=== PATIENT | female | born 1995 | race Caucasian/White ===

== ENCOUNTER 2019-08-20 19:06 | Emergency (ER) | payer BC ==
[~2019-08-20] VITALS: Ht 165.1 cm; Wt 79.5 kg
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
--- NOTE | 2019-08-20 19:57 | RAD ---
ANKLE LEFT 3V History: Reason: twisted ankle / Spl. Instructions: / History: Technique: 3 views left ankle. Comparison: None. Findings: Severe lateral ankle soft tissue swelling. Symmetric ankle mortise. No fracture. Small ankle joint effusion. Impression: 1. No acute osseous abnormality. 2. Severe lateral ankle soft tissue swelling. Electronically signed by: Eliel Lincoln DO (08/20/2019 7:54 PM) [facility]
[2019-08-20] MEDS ORDERED: HYDR-1179 PO (20:04)
[2019-08-20 20:13] VITALS: BP 131/88
[2019-08-20] MEDS ORDERED: HYDROcodon/IBUPROFEN 7.5/200MG 1 TAB TABLET PO ONE (20:15)
== END 2019-08-20 20:20 | disposition home or self-care (01) ==
LOC: ER 19:06
DX: S93.402A Sprain of unspecified ligament of left ankle, initial encounter (principal); X50.9XXA Other and unspecified overexertion or strenuous movements or postures, initial encounter; Y93.89 Activity, other specified; Y92.89 Other specified places as the place of occurrence of the external cause; Y99.8 Other external cause status
CPT/HCPCS: 29515; 73610; 99283